=== PATIENT | female | born 1975 | race Caucasian/White ===

== ENCOUNTER 2025-01-29 10:04 | Observation (INO) ==
--- NOTE | 2025-01-29 11:11 | Emergency Department Note ---
History of Present Illness General Chief complaint: Urinary Symptoms Stated complaint: UTI- DIAGNOSED LAST WEEK, SYMPTOMS CONTINUING Time Seen by Provider: 01/29/25 10:58 History of Present Illness Maximum Pain Intensity: 6 This is a 49-year-old female that presents to the emergency department via private vehicle with complaints of "lower abdominal pain, dysuria, back pain". The patient notes that on 12/17/2024 she underwent hysterectomy and notes that there was a small injury to the bladder at that time which was repaired. She has been doing well. However she does note that several days ago began with some dysuria and was seen here and evaluated and noted to have UTI based on urinalysis. She also notes a CT scan was performed. She initially was prescribed Macrobid, was then called and informed urine was growing Pseudomonas aeruginosa and subsequently was placed on ciprofloxacin. She has been taking this since 01/23 and notes that the first few days she felt quite ill and had to lay in bed she thought perhaps secondary to the medication. However now she notes worsening bilateral abdominal pain tracking to the flanks as well as back pain. The patient was concern for worsening infection. She notes that her UTI symptoms never completely resolved, rather have progressed. Home Medications Medication Instructions Recorded Confirmed Type bupropion HCl 300 mg 24 hr tablet, 300 mg PO QAM 08/07/24 01/29/25 History extended release levothyroxine 50 mcg tablet 50 mcg PO QAM 08/07/24 01/29/25 History calcium 600 mg (as 1 tab PO QAM 12/04/24 01/29/25 History carbonate)-vitamin D3 5 mcg (200 unit) tablet fluoxetine 20 mg capsule (Prozac) 20 mg PO HS 12/04/24 01/29/25 History ciprofloxacin HCl 500 mg tablet 500 mg PO BID 01/29/25 01/29/25 History cranberry 500 mg capsule 500 mg PO BID 01/29/25 01/29/25 History Allergies Allergy/AdvReac Type Severity Reaction Status Date / Time chlorhexidine Allergy Severe Hives Verified 01/29/25 12:41 surgical glue Allergy Mild Unknown Uncoded 01/29/25 12:41 Past Med/Surg History Problem List (Updated 01/29/25 @ 22:16 by Rishabh Hayes PA-C) Low back pain (Acute) Dysuria (Acute) Abdominal pain (Acute) Thyroid disease Back problem Asthma Right inguinal hernia History of bladder surgery Postoperative state Vaginal dryness Weight gain Fatigue Scoliosis History of neck surgery Cervical stenosis (uterine cervix) Medical History Hypothyroidism Obesity wellbutrin daily for appetite suppressant Anxiety Heartburn diet related. no current issues Hx of motion sickness PONV (postoperative nausea and vomiting) has used scop patch in the past without issues. Cervical spinal stenosis Temporomandibular joint dysfunction syndrome clicks - never locked. Chronic sinusitis Surgical History History of hip surgery 10/15 H/O: hysterectomy (11/2024) History of anesthesia reaction Nausea & Vomiting H/O cervical spine surgery cervical decompression - has full rom History of colonoscopy History of esophagogastroduodenoscopy (EGD) S/P endometrial ablation History of carpal tunnel release (10/2020) bilateral S/P hip arthroscopy right History of cholecystectomy (2007) History of bilateral tubal ligation History of section x3: 2003,2004,2007 H/O bilateral breast reduction surgery Family History Other Adopted person Social History Smoking Status: Never smoker Second Hand Exposure: No; Do You Dip or Chew Tobacco: No; Hx Alcohol Use: Yes Alcohol type: wine Hx Substance Use: No Preferred Language: Nepali Communication Ability: Effective Visual Impairment: No Limitations Cushion Padder Required: No Beliefs That Will Affect Care: None marital status: Current Living Situation: Spouse current occupational status: employed How many Children do You have: 3 Feels Safe at Home: Yes during the past year weight has: increased > 10 lbs Assistive Devices: Glasses Review of Systems A total of 10 systems reviewed and were otherwise negative Physical Exam Vital Signs Vital Signs - 24 hr 01/29/25 10:06 01/29/25 11:27 Temperature 36.3 C L Temperature Source Skin Pulse Rate 77 Pulse Rate [Finger] 79 Pulse Strength [Finger] Normal Respiratory Rate 20 17 Respiratory Effort / Characteristics Non-Labored Spontaneous Non-Labored Spontaneous Respiratory Depth Normal Normal Respiratory Pattern Regular Regular Blood Pressure 146/89 H Blood Pressure Mean 108 Pulse Oximetry 99 98 Oxygen Delivery Method Room Air Room Air Sepsis Recent Fever Within 48 Hours No Sepsis New/Unexplained Change in Mental Status N/A Sepsis Action Taken by Nursing No Action Required VITAL SIGNS - Vital signs and nursing notes were reviewed. Stable and afebrile. GENERAL -49-year-old female appearing her stated age who is in no acute distress. Communicates well with provider and answers questions appropriately. SKIN - Without rashes. No meningeal or petechial rash. HEAD - NC/AT. EYES - Sclera anicteric. EARS - No deformities of external structures noted on gross examination bilaterally. NOSE - Midline and without cyanosis. No epistaxis or purulent drainage noted. Septum midline without deviation or septal hematoma noted. MOUTH/OROPHARYNX - Without perioral cyanosis. NECK - Neck with FROM. No nuchal rigidity. LUNGS - CTA CARDIAC - RRR ABDOMEN - Abdominal contour normal without pulsations or visible masses. BS normoactive all four quadrants. Generalized abdominal tenderness without guarding or rigidity. No palpable masses, hepatosplenomegaly, or ascites noted. No CVA tenderness. EXTREMITIES - No clubbing or peripheral cyanosis. +5/5 strength noted in UE/LE bilaterally. NEUROLOGIC - Cranial nerves II through XII grossly intact. PSYCH -alert, oriented and pleasant on examination. Course Administered Medications Acetaminophen (Acetaminophen 325 Mg Tab) 650 mg PO Q4H PRN PRN Reason: pain/fever Stop: 02/28/25 17:40 Last Admin: 01/29/25 20:54 Dose: 650 mg Documented By: JA Docusate Sodium (Docusate Sodium 100 Mg Cap) 100 mg PO BID [facility] Stop: 02/28/25 20:59 Last Admin: 01/29/25 21:02 Dose: 100 mg Documented By: SHELTON Fluoxetine HCl (Fluoxetine Hcl 20 Mg Cap) 20 mg PO [facility] Stop: 02/28/25 20:59 Last Admin: 01/29/25 21:02 Dose: 20 mg Documented By: SHELTON Cefepime HCl (Maxipime 2000mg) 2,000 mg in 20 mls @ 5 mls/min IV Q8H [facility]; Protocol Stop: 02/08/25 18:59 Last Admin: 01/29/25 21:02 Dose: 5 mls/min Documented By: SHELTON Lidocaine (Lidocaine 5% 1 Patch) 1 patch TD [facility] Stop: 02/28/25 17:40 Last Admin: 01/29/25 18:54 Dose: 1 patch Documented By: BT Discontinued Medications Sodium Chloride (Nss) 1,000 mls @ 999 mls/hr IV .Q1H1M ONE Stop: 01/29/25 12:10 Last Infusion: 01/29/25 12:31 Dose: Infused Documented By: Admin: 01/29/25 11:14 Dose: 999 mls/hr Documented By: GUYD Cefepime HCl (Maxipime 2000mg) 2,000 mg in 20 mls @ 5 mls/min IV NOW STA; Protocol Stop: 01/29/25 11:15 Last Admin: 01/29/25 11:21 Dose: 5 mls/min Documented By: NICOLAS Medical Decision Making Laboratory Data 01/29/25 11:16 01/29/25 11:16 Lab Results 01/29/25 01/29/25 Range/Units 11:16 11:53 WBC 5.28 (4.8-10.8) K/ul RBC 4.65 (4.20-5.40) M/uL Hgb 14.9 (12.0-16.0) g/dl Hct 43.8 (37.0-47.0) % MCV 94.2 (80.0-100.0) fL MCH 32.0 (25.0-34.0) pg MCHC 34.0 (32.0-36.0) g/dL RDW Std Deviation 42.1 (36.4-46.3) fL RDW Coeff of Keri 12.1 (11.5-14.5) % Plt Count 273 (130-400) K/uL MPV 9.6 (9.4-12.4) fL Immature Gran % (Auto) 0.2 % Neut % (Auto) 53.6 % Lymph % (Auto) 33.5 % Crane % (Auto) 8.0 % Eos % (Auto) 3.8 % Baso % (Auto) 0.9 % Neut # (Auto) 2.83 (1.40-6.50) K/uL Lymph # (Auto) 1.77 (1.20-3.40) K/uL Crane # (Auto) 0.42 (0.11-0.59) K/uL Eos # (Auto) 0.20 (0.00-0.50) K/uL Baso # (Auto) 0.05 (0.00-0.20) K/uL Immature Gran # (Auto) 0.01 (0.01-0.20) K/uL Sodium 138 (136-145) mmol/L Potassium 4.2 (3.5-5.1) mmol/L Chloride 105 (98-107) mmol/L Carbon Dioxide 27 (21-32) mmol/L Anion Gap 6 (3-11) BUN 17 (6-23) mg/dl Creatinine 0.86 (0.6-1.2) mg/dl Est Cr Clr Drug Dosing 80.0 ml/min eGFR 83.80 BUN/Creatinine Ratio 19.8 (10-20) Glucose 86 (70-99(Fasting)) mg/dl Calcium 9.6 (8.6-10.3) mg/dl Total Bilirubin 0.8 (0.2-1.0) mg/dl AST 20 (13-39) U/L ALT 25 (7-52) U/L Alkaline Phosphatase 38 (34-104) U/L Total Protein 7.2 (6.0-8.3) gm/dl Albumin 4.7 (3.4-5.0) gm/dl Globulin 2.5 (2.5-4.0) gm/dl Albumin/Globulin Ratio 1.9 (0.9-2) Procalcitonin < 0.02 (0-0.5) ng/ml Urine Color Dark Yellow Urine Appearance Clear (Clear) Urine pH 6.0 (4.5-7.5) Ur Specific [place] 1.015 (1.000-1.030) Urine Protein Negative (Negative) Urine Glucose (UA) Negative (Negative) Urine Ketones Negative (Negative) Urine Blood Negative (Negative) Urine Nitrite Positive A (Negative) Urine Bilirubin Negative (Negative) Urine Urobilinogen Negative (Negative) Ur Leukocyte Esterase Negative (Negative) Urine WBC (Auto) 0-5 (0-5) /hpf Urine RBC (Auto) 0-2 (0-2) /hpf U Hyaline Cast (Auto) 0-2 (0-2) /lpf U Epithel Cells (Auto) 0-2 (0-2) /hpf Urine Bacteria (Auto) None Seen (None Seen) Imaging Data Radiologist's Impression: Renal Ultrasound 01/29/25 11:10 RENAL ULTRASOUND HISTORY: uti, now diffuse abd pain, flank pain COMPARISON: CT of 01/21/2025 FINDINGS: Urinary bladder is grossly unremarkable. Right kidney measures 12 x 5 cm. Left kidney measures 12 x 5 cm. There is no hydronephrosis bilaterally. There is Doppler flow to both kidneys. Renal cortical thickness is normal. No renal abscess seen. No renal calculi seen. IMPRESSION: No hydronephrosis. ACT 112: Negative or not required by law. Electronically signed by: Sandeep Villalobos M.D. 01/29/2025 12:11 PM [facility] Narrative Patient was seen and evaluated as above in room D03. Review was performed of triage nursing notes and vital signs. I did review pertinent previous visits and patient history. After obtaining a thorough history and physical examination the above work up was performed. Patient presents for evaluation of ongoing urinary symptoms. Per review of the EMR patient was seen here on 01/21/2025 and diagnosed with UTI. She also underwent a CT scan of the abdomen/pelvis which I did review. This was essentially negative for acute process. Urine culture from 01/21/2025 revealed Pseudomonas aeruginosa pansensitive. Patient notes worsening symptoms despite oral ciprofloxacin. This limits additional oral options for coverage of this organism. IV antibiotics are felt reasonable at this time. Options of care were discussed with the patient. IV access with established. Labs were drawn. No leukocytosis or concerning anemia. No emergent metabolic disturbance. Procalcitonin undetectable. Urinalysis reveals nitrites, otherwise is unremarkable. IV cefepime ordered. Although the patient's vital signs and labs look great, noting her progression of dysuria now with generalized abdominal discomfort that is a sending with bilateral flank pain I am concerned about ascending urinary tract infection. I do not believe that repeat CT at this time is needed but did add on renal ultrasound which did not show any hydronephrosis. There was no comment of kidney stones on recent CT scan. Blood culture pending. Case discussed with the hospitalist service. Please refer to further documentation regarding her stay. GCS: 15 In the evaluation and treatment of this patient the following differential diagnoses were entertained: Ascending urinary tract infection/pyelonephritis, kidney stone, obstruction, strain, sprain, cauda equina syndrome, diverticulitis, among others Impression & Plan Dysuria, Abdominal pain, Low back pain Discharge Plan Visit Data Chief Complaint: Urinary Symptoms Stated Complaint: UTI- DIAGNOSED LAST WEEK, SYMPTOMS CONTINUING ED Provider: Ryan Amaya ED Midlevel Provider: Rishabh Hayes Discharge Problem: Dysuria, Abdominal pain, Low back pain Patient Disposition: Admitted As Inpatient Condition: Good Discharge Instructions Interventions: ED Discharge Assessment Last Done: 01/29/25 16:59
[2025-01-29] MEDS: SODIUM CHLORIDE 0.9% 1,000 ML IV ONE (11:14)
[2025-01-29] MEDS: CEFEPIME 2000MG 2,000 MG/20 ML SYR IV STA (11:21)
[2025-01-29 11:51] LABS: Basophils # (auto) 0.05 K/uL (0.00-0.20); Basophils % (auto) 0.9 %; Eosinophils % (auto) 3.8 %; Hematocrit (blood only) 43.8 % (37.0-47.0); Hemoglobin 14.9 g/dl (12.0-16.0); Immature Granulocytes # (auto) 0.01 K/uL (0.01-0.20); Immature Granulocytes % (auto) 0.2 %; Lymphocytes # (auto) 1.77 K/uL (1.20-3.40); Lymphocytes % (auto) 33.5 %; Mean Corpuscular Volume 94.2 fL (80.0-100.0); Mean Platelet Volume 9.6 fL (9.4-12.4); Monocytes # (auto) 0.42 K/uL (0.11-0.59); Neutrophils # (auto) 2.83 K/uL (1.40-6.50); Neutrophils % (auto) 53.6 %; Platelet Count 273 K/uL (130-400); RDW Coefficient of Variation 12.1 % (11.5-14.5); RDW Standard Deviation 42.1 fL (36.4-46.3); Red Blood Count 4.65 M/uL (4.20-5.40); White Blood Count 5.28 K/ul (4.8-10.8)
--- NOTE | 2025-01-29 12:12 | Ultrasound Report ---
RENAL ULTRASOUND HISTORY: uti, now diffuse abd pain, flank pain COMPARISON: CT of 01/21/2025 FINDINGS: Urinary bladder is grossly unremarkable. Right kidney measures 12 x 5 cm. Left kidney measu res 12 x 5 cm. There is no hydronephrosis bilaterally. There is Doppler flow to both kidneys. Renal c ortical thickness is normal. No renal abscess seen. No renal calculi seen. IMPRESSION: No hydronephrosis. ACT 112: Negative or not required by law. Electronically signed by: Sandeep Villalobos M.D. 01/29/2025 12:11 PM
[2025-01-29 12:15] LABS: Albumin Globulin Ratio 1.9 (0.9-2); Albumin Level 4.7 gm/dl (3.4-5.0); BUN Creatinine Ratio 19.8 (10-20); Bilirubin,Total 0.8 mg/dl (0.2-1.0); Calcium 9.6 mg/dl (8.6-10.3); Globulin 2.5 gm/dl (2.5-4.0); Potassium 4.2 mmol/L (3.5-5.1); Total Protein 7.2 gm/dl (6.0-8.3)
[2025-01-29 12:25] LABS: Appearance Urine Clear (Clear); Bacteria Urine Automated None Seen (None Seen); Bilirubin Urine Negative (Negative); Blood Urine Negative (Negative); Cast Urine Automated 0-2 /lpf (0-2); Color Urine Dark Yellow; Epithelial Cell Urine Auto 0-2 /hpf (0-2); Glucose Urine UA Negative (Negative); Ketones Urine Negative (Negative); Leukocyte Esterase Urine Negative (Negative); Nitrite Urine Positive (Negative); Protein Urine Negative (Negative); RBC Urine Automated 0-2 /hpf (0-2); Specific Gravity Urine 1.015 (1.000-1.030); Urobilinogen Urine Negative (Negative); WBC Urine Automated 0-5 /hpf (0-5)
--- NOTE | 2025-01-29 13:09 | History & Physical Report ---
Date of Service January 29, 2025 Assessment & Plan (1) Dysuria: (2) Abdominal pain: (3) Low back pain: Plan Patient is a 49-year-old female who has significant history of hypothyroidism, GERD and depression and anxiety presents to ED secondary to ongoing UTI symptoms. 12/17 pt underwent robotic assisted Laparoscopic Hysterectomy, Bilateral Salpingectomy, Lysis of Adhesions, and Repair of Cystotomy, by Dr. Tracy 12/25 followed up with urology due to bladder injury and cystogram negative for extravasation of contrast. 01/21 seen in ED for urinary sx and abd pain. Urine culture grew 80k Pseudomonas aeruginosa. Initially started on Macrobid and transitioned to cipro. #Dysuria #Suprapubic Discomfort #Low back pain admit to medical under obs blood and urine culture obtained Empiric IV cefepime until culture results given recent culture with 80k pseudomonas ?if sx related to on going UTI vs complicated post op course if urinary sx do not improve despite antibiotics/urine culture unrevealing consider reaching out to [place] [facility] OPERATOR to discuss medication options for her symptoms continue lactobacillus and colace #Low back pain could certainly be related to urinary sx sx are also reproducible on b/l paravertebral muscles in lumbar region could also be MSK related in setting of lying in bed and some deconditioning for several days lidocaine patch, heat, tylenol PRN prn IV toradol prn for severe pain #Hypothyroidism: continue levothyroxine #Depression with anxiety: Chronic, stable, continue wellbutrin and prozac DVT ppx: encourage ambulation FULL CODE PCP: Jj/Flores Martin PA-C Dispo: admit to medical under obs, await urine culture and likely d/c in next 1- 2 days Pt was seen and examined in collaboration with Dr. Miranda, please see addendum I spent a total of 60 minutes coordinating, documenting and providing care for this patient excluding time spent in the performance of separately billed services or time spent by another provider/QHP. History of Present Illness Chief Complaint: On going UTI sx x 1 week. Primary Care Provider: Scarlett Gardner DO Patient is a 49-year-old female who has significant history of hypothyroidism, GERD and depression and anxiety presents to ED secondary to ongoing UTI symptoms. Of significance on 12/17/2024 patient underwent robotic assisted laparoscopic hysterectomy, bilateral salpingectomy, lysis of adhesions and repair of cystotomy that occurred intraoperatively by Dr. Tracy. She tolerated procedure well. Due to the bladder injury she was discharged with a Oliveros catheter and followed up with urology on 12/25. There she has a cystogram with negative extravasation of contrast and her catheter was removed. She was later seen in ED on 01/21 secondary to abdominal pain and dysuria. It was felt that she had a urinary tract infection and was discharged on a course of Macrobid. Her urine culture grew greater than 100,000 Pseudomonas aeruginosa. She was then called by pharmacy to transition antibiotic to ciprofloxacin. So far she has completed 5 days course and has felt unwell since taking ciprofloxacin. She comes in today due to still feeling unwell, suprapubic discomfort, low back discomfort, dysuria and urinary urgency/frequency. She reports significant nausea and joint pains with the cipro to the point she has been in bed the last 5 days. She denies any trauma/injury to her back since she was mostly laying in bed. Denies fever, chills, sweats, chest pain, sob, n/v. She is moving her bowels. She reports having on going urinary/bladder sx since hysterectomy which is expected per provider documentation. She does feel her sx have worsened since the UTI. She is concerned she may have another UTI. In ED she was hemodynamically stable. Her labwork was unremarkable. She underwent a Renal US which was negative. She was started on IV cefepime. Hx obtained from ED provider and pt. Allergies Allergy/AdvReac Type Severity Reaction Status Date / Time chlorhexidine Allergy Severe Hives Verified 01/29/25 12:41 surgical glue Allergy Mild Unknown Uncoded 01/29/25 12:41 Home Medications Medication Instructions Recorded Confirmed Type bupropion HCl 300 mg 24 hr tablet, 300 mg PO QAM 08/07/24 01/29/25 History extended release levothyroxine 50 mcg tablet 50 mcg PO QAM 08/07/24 01/29/25 History calcium 600 mg (as 1 tab PO QAM 12/04/24 01/29/25 History carbonate)-vitamin D3 5 mcg (200 unit) tablet fluoxetine 20 mg capsule (Prozac) 20 mg PO HS 12/04/24 01/29/25 History ciprofloxacin HCl 500 mg tablet 500 mg PO BID 01/29/25 01/29/25 History cranberry 500 mg capsule 500 mg PO BID 01/29/25 01/29/25 History Past Med/Surg History Problem List (Updated 01/29/25 @ 13:54 by Makenna Lawrence PA-C) Low back pain Dysuria (Acute) Abdominal pain (Acute) Thyroid disease Back problem Asthma Right inguinal hernia History of bladder surgery Postoperative state Vaginal dryness Weight gain Fatigue Scoliosis History of neck surgery Cervical stenosis (uterine cervix) Medical History Hypothyroidism Obesity wellbutrin daily for appetite suppressant Anxiety Heartburn diet related. no current issues Hx of motion sickness PONV (postoperative nausea and vomiting) has used scop patch in the past without issues. Cervical spinal stenosis Temporomandibular joint dysfunction syndrome clicks - never locked. Chronic sinusitis Surgical History History of hip surgery 10/15 H/O: hysterectomy (11/2024) History of anesthesia reaction Nausea & Vomiting H/O cervical spine surgery cervical decompression - has full rom History of colonoscopy History of esophagogastroduodenoscopy (EGD) S/P endometrial ablation History of carpal tunnel release (10/2020) bilateral S/P hip arthroscopy right History of cholecystectomy (2007) History of bilateral tubal ligation History of section x3: 2003,2004,2007 H/O bilateral breast reduction surgery Family History Other Adopted person Social History Smoking Status: Never smoker Second Hand Exposure: No; Do You Dip or Chew Tobacco: No; Hx Alcohol Use: Yes Alcohol type: hard liquor Hx Substance Use: No Preferred Language: Nepali Communication Ability: Effective Visual Impairment: No Limitations 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 Beliefs That Will Affect Care: None marital status: Current Living Situation: Spouse and Family current occupational status: employed How many Children do You have: 3 Feels Safe at Home: Yes during the past year weight has: increased > 10 lbs Assistive Devices: Glasses Review of Systems Review of Systems: All systems reviewed & are unremarkable except as noted in HPI & below Physical Exam Physical Exam: Constitutional: WD/WN, vitals as above, NAD, sitting up in bed, pleasant, conversing easily Head: Normocephalic, Atraumatic Eyes: PERRL, conjunctivae normal, anicteric sclerae ENMT: external ear and nose normal, oropharynx normal Neck: trachea midline, no thyromegaly normal visual inspection Respiratory: normal respiratory effort, lungs clear to auscultation, no wheeze, rales, rhonchi. Normal insp/exp effort, no accessory muscle use Cardiovascular: RRR, no murmur, no edema Vessels: no JVD or carotid bruit Chest: normal inspection of chest Abdomen: normal bowel sounds, soft, mild TTP suprapubic region, no hepatosplenomegaly , no CVA tenderness Musculoskeletal: +TTP to b/l paravertebral muscles, no cyanosis or clubbing, extremities motor strength 5/5 Skin: no rashes, warm and dry normal turgor Neurologic: no face palsy, no dysarthria CN's II-XI intact bilaterally and moves all extremities Psychiatric: A+Ox3, euthymic affect Lymphatic: no cervical or axillary lymphadenopathy : deferred Results & Data Results & Data Vital Signs (Past 12 Hours) Vital Signs Temp Pulse Pulse Resp BP Pulse Ox O2 Del Method 01/29/25 11:27 79 17 98 Room Air 01/29/25 10:06 36.3 C L 77 20 146/89 H 99 Room Air Laboratory Results I have independently reviewed and interpreted patient's admitting labs including CBC, CMP, UA, procal Diagnostic Findings Renal Ultrasound 01/29/25 11:10 RENAL ULTRASOUND HISTORY: uti, now diffuse abd pain, flank pain COMPARISON: CT of 01/21/2025 FINDINGS: Urinary bladder is grossly unremarkable. Right kidney measures 12 x 5 cm. Left kidney measures 12 x 5 cm. There is no hydronephrosis bilaterally. There is Doppler flow to both kidneys. Renal cortical thickness is normal. No renal abscess seen. No renal calculi seen. IMPRESSION: No hydronephrosis. ACT 112: Negative or not required by law. Electronically signed by: Sandeep Villalobos M.D. 01/29/2025 12:11 PM Medications Administered Medication List Discontinued Medications Sodium Chloride (Nss) 1,000 mls @ 999 mls/hr IV .Q1H1M ONE Stop: 01/29/25 12:10 Last Infusion: 01/29/25 12:31 Dose: Infused Documented By: Admin: 01/29/25 11:14 Dose: 999 mls/hr Documented By: MIKHAIL Cefepime HCl (Maxipime 2000mg) 2,000 mg in 20 mls @ 5 mls/min IV NOW STA; Protocol Stop: 01/29/25 11:15 Last Admin: 01/29/25 11:21 Dose: 5 mls/min Documented By: NICOLAS COVID-19 Results Results COVID-19 Adm Lab Results: RBC 4.65 M/uL (4.20-5.40) 01/29/25 WBC 5.28 K/ul (4.8-10.8) 01/29/25 Hgb 14.9 g/dl (12.0-16.0) 01/29/25 Hct 43.8 % (37.0-47.0) 01/29/25 Plt Count 273 K/uL (130-400) 01/29/25 Neutrophils (%) (Auto) 53.6 % 01/29/25 Lymphocytes (%) (Auto) 33.5 % 01/29/25 Eosinophils # (Auto) 0.20 K/uL (0.00-0.50) 01/29/25 Immature Granulocyte % (Auto) 0.2 % 01/29/25 Neutrophils # (Auto) 2.83 K/uL (1.40-6.50) 01/29/25 Lymphocytes # (Auto) 1.77 K/uL (1.20-3.40) 01/29/25 Eosinophils # (Auto) 0.20 K/uL (0.00-0.50) 01/29/25 Basophils # (Auto) 0.05 K/uL (0.00-0.20) 01/29/25 Immature Granulocyte # (Auto) 0.01 K/uL (0.01-0.20) 5 Na 138 mmol/L (136-145) 01/29/25 K 4.2 mmol/L (3.5-5.1) 01/29/25 Cl 105 mmol/L (98-107) 01/29/25 CO2 27 mmol/L (21-32) 01/29/25 Anion Gap 6 (3-11) 01/29/25 BUN 17 mg/dl (6-23) 01/29/25 Creatinine 0.86 mg/dl (0.6-1.2) 01/29/25 BUN/Creatinine Ratio 19.8 (10-20) 01/29/25 Glucose Level 86 mg/dl (70-99(Fasting)) 01/29/25 Ca 9.6 mg/dl (8.6-10.3) 01/29/25 Total Bilirubin 0.8 mg/dl (0.2-1.0) 01/29/25 AST/SGOT 20 U/L (13-39) 01/29/25 ALT/SGPT 25 U/L (7-52) 01/29/25 Alkaline Phosphatase 38 U/L (34-104) 01/29/25 Total Protein 7.2 gm/dl (6.0-8.3) 01/29/25 Albumin 4.7 gm/dl (3.4-5.0) 01/29/25 Globulin 2.5 gm/dl (2.5-4.0) 01/29/25 Albumin/Globulin Ratio 1.9 (0.9-2) 01/29/25 Procalcitonin < 0.02 ng/ml (0-0.5) 01/29/25 Code Status & VTE Plan Code Status FULL CODE VTE Prophylaxis Plan VTE Prophylaxis will be ordered: No Reason for no VTE drug order: Treatment not tolerated Supervising Physician Co-Signing Physician Notes Pt was seen and examined by myself, Gayatri Miranda MD on the day of service. Care was coordinated with Makenna Lawrence PA-C. 49yoF admitted for UTI with dysuria and back pain. States that she had a hysterectomy a few weeks ago and had a bladder injury at that time as well. Urine cx on the grew pseudomonas near completion of treatment with fluoroquinolone with side-effects. Tender in lower abd quadrants on exam, no CVA tenderness bilaterally at the time of my exam. Follow repeat urine cx, ED ordered blood cultures. CT abd/pelvis from January 21 reviewed, consider repeat IV Cefepime PRN pain meds Consider Urology, DRIER OPERATOR consults Otherwise as above. I spent a total [id number] coordinating, documenting, and providing care for this patient excluding time spent in the performance of separately billed services (2) Abdominal pain Abdominal location: generalized Qualified Code(s): R10.84 - Generalized abdominal pain
[2025-01-29] MEDS ORDERED: POLYETHYLENE (MIRALAX) 17 GM PACK PO PRN (17:41)
[2025-01-29] MEDS ORDERED: PHENAZOPYRIDINE HCL 200 MG TAB PO PRN (17:41)
[2025-01-29] MEDS ORDERED: FAMOTIDINE 20 MG TAB PO PRN (17:41)
[2025-01-29] MEDS: LIDOCAINE 5% 1 PATCH TD SCH (18:54)
[2025-01-29] MEDS: ACETAMINOPHEN 325 MG TAB PO PRN (20:54)
[2025-01-29] MEDS ORDERED: NON-FORMULARY MEDICATION (Cranberry 500 mg Capsule) PO SCH (21:00)
[2025-01-29] MEDS: DOCUSATE SODIUM 100 MG CAP PO SCH (21:02)
[2025-01-29] MEDS: CEFEPIME 2000MG 2,000 MG/20 ML SYR IV SCH (21:02)
[2025-01-29] MEDS: FLUoxetine HCL 20 MG CAP PO SCH (21:02)
--- NOTE | 2025-01-30 07:27 | Hospitalist Progress Note ---
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 Recent history significant for the followin12/17/24 - Underwent robotic assisted laparoscopic hysterectomy, bilateral salpingectomy, lysis of adhesions and repair of cystotomy performed by Dr. Tracy of [facility]. 12/25/24 - Saw [facility]rology, Dr. Keyes, as an outpatient due to bladder injury during above procedure. Underwent cystogram which was negative for extravasation of contrast. 01/21/25 - Seen in [facility] ED for UTI symptoms. Urine culture grew 80k pansensitive Pseudomonas aeruginosa. Initially on Macrobid then transitioned to ciprofloxacin w/o improvement. Renal US reviewed and unremarkable. Preliminary urine culture with no growth. Preliminary blood cultures with NGTD. Continue IV cefepime for now pending final urine culture results. Currently on day #8 of ABX therapy including po ciprofloxacin (taken prior to admission) and IV cefepime. Continue probiotic as well as PRN Pyridium for dysuria. Low back pain improving; PRN IV Toradol ordered for back pain/headache. Suspect low back pain is more related to deconditioning/lack of activities for several days prior to admission due to her muscle/joint pains while on the ciprofloxacin. Will repeat CTAP given persistence of symptoms; prior CTAP from 01/11 during her prior ED visit outlined above was unremarkable. Discussed with patient regarding trial of Gemtesa (Myrbetriq not on formulary) in attempt to reduce urinary frequency to which she was agreeable with. (3) Hypothyroidism: Plan: Chronic, stable. Continue levothyroxine. Other Chronic Medical Conditions: PHOEBE, Depression - Continue Wellbutrin and Prozac. DVT Prophylaxis: SCDs/TEDS, encourage ambulation. Code Status: FULL CODE PCP: Scarlett Gardner DO Disposition: Likely discharge home tomorrow pending CTAP results and overall clinical progression. Patient seen in collaboration with Dr. Mackay. Please see addendum. I spent a total of 40 minutes coordinating, documenting, and providing care for this patient excluding time spent in the performance of separately billed services or time spent by another provider/QHP. This included personally reviewing all current laboratories and imaging studies, medical reconciliation, outpatient chart review and discussion with specialists. This chart was completed in part utilizing Speech Voice Recognition Software. Grammatical errors, random word insertions, pronoun errors, and incomplete sentences are an occasional consequence of this system due to software limitations, ambient noise, and hardware issues. Any formal questions or concerns about the content, text, or information contained within the body of this dictation should be directly addressed to the provider for clarification. Admission and Anticipated Discharge Date Admission Date: January 29, 2025 Supervising Physician Co-Signing Physician Notes Patient seen and examined at bedside. Discussed patients recent hysterectomy and oophorectomy, procedures complicated by bladder "dontrell". Presenting with abdominal pain, lower back pain, some burning with urination and frequency. UA unremarkable. CT imaging revealing concern for urachal remnant infection. No umbilicus drainage noted. Suspect urachal remnant infection is post operative complication from complex recent hysterectomy and oophorectomy. Treat with broad spectrum antibiotics, consult urology, and infectious disease in AM for definitive management. I have seen and discussed the case with the collaborating advanced practitioner. I agree with the above H&P. I have reviewed and confirmed the patients medical history, the findings on physical examination, and the patients diagnosis and treatment plan with Sarita GRIMM and agree with the information documented. I spent a total of 20 minutes coordinating, documenting, and providing care for this patient excluding time spent in the performance of separately billed services. All of the aforementioned completed outside of collaborating with the assigned advanced practitioner for a full treatment plan. I have reviewed the advanced practitioner's documentation, and I agree with, and take responsibility for the plan of care Subjective Patient seen and examined in room W356-1. NAEO. Of importance, patient underwent robotic assisted laparoscopic hysterectomy, bilateral salpingectomy, lysis of adhesions and repair of cystotomy performed by Dr. Tracy of [facility] back on December 17. Previously had to have a Oliveros catheter in place due to the bladder injury she sustained during this procedure. Her Oliveros catheter was in place from 12/17 until 12/25 when she was seen and evaluated by [facility] urology - Dr. Keyes. She underwent a cystogram during her urology visit which did not reveal any signs of extravasation to suggest a bladder leak. She was previously seen in the [facility] ED on 01/21 and started on oral Macrobid for possible UTI. Urine culture from that visit ended up growing Pseudomonas aeruginosa therefore she was transitioned to oral ciprofloxacin on 01/23 however her symptoms did not fully resolve. Patient endorses feeling "quite ill" on the ciprofloxacin with symptoms including low back discomfort as well as nausea and joint pain/aches. Feels her low back discomfort is improving. Endorses her nausea and joint pain have also improved since stopping the oral ciprofloxacin and starting IV cefepime. Endorses ongoing issues with increased urinary frequency, suprapubic discomfort and dysuria however. Denies any hematuria, SOB or chest pain. Reports suprapubic discomfort is improving slightly but still present. Endorses taking both a cranberry supplement and Azo PRN at home with some relief in her dysuria. Reports she was up over 20 times throughout the night to urinate. Denies any urinary or bowel incontinence. Experiencing a mild headache this morning. Denies any visual disturbances or hearing issues. Reviewed her renal US results. Review of Systems Review of Systems: At least ten systems reviewed and negative, except as noted in the subjective section. Physical Exam Physical Exam: General: WD/WN. Sitting up in bed. Very pleasant. NAD. Conversing appropriately. A+Ox3. HEENT: Normocephalic, atraumatic. Conjunctivae normal. External ear/nose normal, moist mucous membranes. Respiratory: Normal respiratory effort. Lungs clear to auscultation bilaterally. No accessory muscle use. Cardiovascular: Regular rate and rhythm, normal peripheral pulses. No BLE edema. Abdomen/GI: Normal bowel sounds, soft. Nondistended. Mild TTP in suprapubic region. No guarding. Extremities/Musculoskeletal: Extremities motor strength intact. Actively moves all extremities. No CVA tenderness bilaterally. Neurologic: No overt focal deficits, CN's II-XI not formally tested but appear grossly intact bilaterally. Results & Data Results & Data Vital Signs (Past 12 Hours) Vital Signs Temp Pulse Resp BP Pulse Ox O2 Del Method 01/29/25 20:19 36.5 C 73 16 133/64 99 Room Air Laboratory Results Short CBC 01/29/25 Range/Units 11:16 WBC 5.28 (4.8-10.8) K/ul Hgb 14.9 (12.0-16.0) g/dl Hct 43.8 (37.0-47.0) % Plt Count 273 (130-400) K/uL BMP 01/29/25 11:16 Sodium 138 Potassium 4.2 Chloride 105 Carbon Dioxide 27 BUN 17 Creatinine 0.86 Glucose 86 Calcium 9.6 Liver Function 01/29/25 Range/Units 11:16 Total Bilirubin 0.8 (0.2-1.0) mg/dl AST 20 (13-39) U/L ALT 25 (7-52) U/L Alkaline Phosphatase 38 (34-104) U/L Albumin 4.7 (3.4-5.0) gm/dl Urine 01/29/25 Range/Units 11:53 Urine Color Dark Yellow Urine Appearance Clear (Clear) Urine pH 6.0 (4.5-7.5) Ur Specific [place] 1.015 (1.000-1.030) Urine Protein Negative (Negative) Urine Glucose (UA) Negative (Negative) (2) Low back pain Back pain laterality: unspecified Chronicity: unspecified Sciatica presence: unspecified whether sciatica present Qualified Code(s): M54.50 - Low back pain, unspecified (3) Hypothyroidism Hypothyroidism type: unspecified Qualified Code(s): E03.9 - Hypothyroidism, unspecified
[2025-01-30 07:56] LABS: Basophils # (auto) 0.04 K/uL (0.00-0.20); Basophils % (auto) 0.9 %; Eosinophils % (auto) 4.7 %; Hematocrit (blood only) 42.2 % (37.0-47.0); Hemoglobin 14.4 g/dl (12.0-16.0); Immature Granulocytes # (auto) 0.01 K/uL (0.01-0.20); Immature Granulocytes % (auto) 0.2 %; Lymphocytes # (auto) 1.37 K/uL (1.20-3.40); Lymphocytes % (auto) 32.3 %; Mean Corpuscular Hemoglobin 31.4 pg (25.0-34.0); Mean Corpuscular Hgb Conc 34.1 g/dL (32.0-36.0); Mean Corpuscular Volume 91.9 fL (80.0-100.0); Mean Platelet Volume 9.5 fL (9.4-12.4); Monocytes # (auto) 0.41 K/uL (0.11-0.59); Monocytes % (auto) 9.7 %; Neutrophils # (auto) 2.21 K/uL (1.40-6.50); Neutrophils % (auto) 52.2 %; Platelet Count 248 K/uL (130-400); RDW Coefficient of Variation 12.3 % (11.5-14.5); RDW Standard Deviation 41.3 fL (36.4-46.3); Red Blood Count 4.59 M/uL (4.20-5.40); White Blood Count 4.24 K/ul (4.8-10.8)
[2025-01-30 08:34] LABS: Calcium 9.4 mg/dl (8.6-10.3); Potassium 4.1 mmol/L (3.5-5.1)
[2025-01-30] MEDS: buPROPion XL 300 MG TABCR PO SCH (09:26)
[2025-01-30] MEDS: LEVOTHYROXINE SODIUM 50 MCG TABLET PO SCH (09:26)
[2025-01-30] MEDS: CALCIUM 600MG + VIT D 400 IU TAB PO SCH (09:27)
[2025-01-30] MEDS: ADVANCED PROBIOTIC 625 MG CAPSULE PO SCH (09:27)
[2025-01-30] MEDS: KETOROLAC 30 MG/ML VIAL IV PRN (12:09)
[2025-01-30] MEDS ORDERED: KETOROLAC TROMETHAMINE 15 MG/ML VIAL IV PRN (12:36)
[2025-01-30] MEDS: OPTIRAY 320 100ml IV ONE (15:07)
[2025-01-30] MEDS: VIBEGRON 75 MG TAB PO SCH (15:23)
--- NOTE | 2025-01-30 15:47 | CT Scan Report ---
CT abdomen pelvis wo/w con CLINICAL HISTORY: DYSURIA suprapubic pain; history of a prior hysterectomy COMPARISON STUDY: 01/21/2025 where the patient had the same presenting symptomatology. TECHNIQUE: Helical axial CT of the abdomen and pelvis was performed before and after 93 cc of Optiray 320 intravenously. Sagittal and coronal reconstructions were done. Total exam DLP 2522.06mGy*cm FINDINGS: The noncontrast examination demonstrates no acute findings. Following intravenous contrast enhancement, there is no significant solid organ lesion identified. Di ffuse hepatic steatosis is redemonstrated. The gallbladder is absent. The bile ducts are not dilated. There is no hydronephrosis. There is no urinary tract calcification. In the pancreas, adrenal glands, and spleen are unremarkable. There is no aortic aneurysm or periaort ic adenopathy. There is no bowel obstruction or free air. There is no ascites. There is no colitis or diverticulitis . In the pelvis, there is a small fat-containing umbilical hernia that is unchanged. There is inflammat ory-type stranding in the anterior aspect of the bladder wall extending upward along the line of a aquino spected urachal remnant. The uterus is absent today. There is no fluid in the cul-de-sac. The appendix is normal. 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 ACT 112: Negative or not required by law. Electronically signed by: Jeannie Green M.D. 01/30/2025 3:46 PM
[2025-01-30 19:57] VITALS: TEMP 98.1
[2025-01-30] MEDS: MELATONIN 3 MG TAB PO PRN (19:59)
[2025-01-31 07:15] VITALS: BP 108/66; PULSE 70; RESP 17; O2SAT 95
[2025-01-31 08:28] LABS: BUN Creatinine Ratio 19.4 (10-20); Calcium 9.4 mg/dl (8.6-10.3); Creatinine Clr Calc Pharmacy 75.8 ml/min; Magnesium 2.1 mg/dl (1.7-2.4); Potassium 4.4 mmol/L (3.5-5.1)
[2025-01-31 10:09] LABS: Hematocrit (blood only) 41.2 % (37.0-47.0); Hemoglobin 14.3 g/dl (12.0-16.0); Mean Corpuscular Hemoglobin 32.4 pg (25.0-34.0); Mean Corpuscular Hgb Conc 34.7 g/dL (32.0-36.0); Mean Corpuscular Volume 93.2 fL (80.0-100.0); Mean Platelet Volume 9.7 fL (9.4-12.4); Platelet Count 252 K/uL (130-400); RDW Coefficient of Variation 12.1 % (11.5-14.5); RDW Standard Deviation 41.7 fL (36.4-46.3); Red Blood Count 4.42 M/uL (4.20-5.40); White Blood Count 4.53 K/ul (4.8-10.8)
--- NOTE | 2025-01-31 10:44 | Urology Consultation ---
<Statement entered by Huseyin Albarran MD - 01/31/25 14:30> I have discussed Ms Arauz's case with CRISTAL Avery and agree with the above documentation. 49-year-old female s/p recent hysterectomy complicated by bladder dome injury which was repaired at the time of surgery. She has now returned to the hospital with urinary tract infection and ongoing symptoms. Urine culture from 01/21 demonstrated Pseudomonas which was sensitive to ciprofloxacin (with which she was previously treated) and cefepime (she is on this currently). Most recent blood and urine cultures from 01/29/2025 were negative. Some of her urinary symptoms may be attributed to the bladder repair as this could cause discomfort, changes in sensation, bladder spasms. Her CT scan from 01/30 was read by radiology as a possible urachal remnant or focal cystitis. I do not appreciate any significant abnormalities of the bladder wall. There is a portion where the bowel is close in the bladder. No significant hydronephrosis or stones bilaterally. Bladder is decompressed. I do not appreciate any focal collections that need drainage or other surgical intervention at this time. Her symptoms could be related to recent procedure and UTI. Agree with ongoing antibiotics. Would be reasonable to perform bladder scans to ensure she is emptying well. Urology will coordinate outpatient follow-up. Please call with any questions or concerns. -Huseyin Albarran MD. Date of Consultation January 31, 2025 Assessment & Plan (1) History of bladder surgery: (2) Dysuria: (3) Suprapubic pain: 49 yo F with history of hysterectomy with bladder repair and recent UTI admitted for persistent urinary symptoms. Patient is afebrile with stable vitals Labs reviewedcreatinine 0.93, WBC 4.53, hemoglobin 14.3 Urine culture 01/21 with Pseudomonas Repeat culture 01/29 prelim with no growth, blood cultures no growth to date CT reviewed -there is some thickening at the dome of the bladder which may be due to prior surgery/repair or cystitis/other; no urachal remnant appreciated Discussed outpatient cystoscopy for further evaluation and she is agreeable No acute intervention at this time Recommend continue antibiotics per culture Continue supportive care and medical management per hospital service Will arrange outpatient urology follow-up will sign off, please contact us with any additional questions or concerns History of Present Illness Reason for Consultation: urachal cyst infection, recent hyster Attending Physician: Alan Mackay MD History of Present Illness This is a 49-year-old female status post hysterectomy with intraoperative bladder dome cystotomy with repair on 12/17/2024. She had follow-up with urology on 12/25/24 after she underwent cystogram which did not have any extravasation and her Oliveros catheter was removed. She presented to ED on 01/21/25 for evaluation of abdominal pain and urinary symptoms. She was discharged with a course of Macrobid. Urine culture grew out greater than 100 K CFU of Pseudomonas aeruginosa. She was transitioned to ciprofloxacin after her culture data resulted. She returned to ED on 01/29/25 due to ill feelings, suprapubic and low back discomfort, and nausea. In ED, she was afebrile and hemodynamically stable. Labs showed WBC 5.28, hemoglobin 14.9, creatinine 0.86. Urinalysis was positive for nitrates, otherwise unremarkable. Renal ultrasound 01/29/2025 showed no hydronephrosis. She was admitted to the hospital medicine service for UTI. She was started on empiric Cefepime. Workup included CT abdomen pelvis without/with contrast on 01/30/25 in which the radiologist read findings suspicious for urachal remnant infection/focal cystitis. Urology is consulted for evaluation. CT reviewed independently and with my attending. No hydronephrosis. There is some thickening of the dome of the bladder which may be postoperative related vs cystitis or other; do not appreciate a urachal remnant. Urine culture 01/29 prelim no growth. Blood cultures with no growth x 24 hours. Labs today-creatinine 0.93, WBC 4.53, hemoglobin 14.3 Patient seen and examined at bedside. She is awake and resting in bed. Reports she is generally feeling better since arrival. Her low back discomfort has improved. She continues to have some suprapubic discomfort and urinary discomfort. Reports urinary frequency. No fever or chills. Allergies Allergy/AdvReac Type Severity Reaction Status Date / Time chlorhexidine Allergy Severe Hives Verified 01/29/25 12:41 surgical glue Allergy Mild Unknown Uncoded 01/29/25 12:41 Home Medications Medication Instructions Recorded Confirmed Type bupropion HCl 300 mg 24 hr tablet, 300 mg PO QAM 08/07/24 01/29/25 History extended release levothyroxine 50 mcg tablet 50 mcg PO QAM 08/07/24 01/29/25 History calcium 600 mg (as 1 tab PO QAM 12/04/24 01/29/25 History carbonate)-vitamin D3 5 mcg (200 unit) tablet fluoxetine 20 mg capsule (Prozac) 20 mg PO HS 12/04/24 01/29/25 History ciprofloxacin HCl 500 mg tablet 500 mg PO BID 01/29/25 01/29/25 History cranberry 500 mg capsule 500 mg PO BID 01/29/25 01/29/25 History Patient History Medical History Hypothyroidism Obesity wellbutrin daily for appetite suppressant Anxiety Heartburn diet related. no current issues Hx of motion sickness PONV (postoperative nausea and vomiting) has used scop patch in the past without issues. Cervical spinal stenosis Temporomandibular joint dysfunction syndrome clicks - never locked. Chronic sinusitis Surgical History History of hip surgery 10/15 H/O: hysterectomy (11/2024) History of anesthesia reaction Nausea & Vomiting H/O cervical spine surgery cervical decompression - has full rom History of colonoscopy History of esophagogastroduodenoscopy (EGD) S/P endometrial ablation History of carpal tunnel release (10/2020) bilateral S/P hip arthroscopy right History of cholecystectomy (2007) History of bilateral tubal ligation History of section x3: 2003,2004,2007 H/O bilateral breast reduction surgery Family History Other Adopted person Social History Smoking Status: Never smoker Second Hand Exposure: No; Do You Dip or Chew Tobacco: No; Hx Alcohol Use: Yes Alcohol type: wine Hx Substance Use: No Preferred Language: [place] Communication Ability: Effective Visual Impairment: No Limitations Harmonica Maker Required: No Beliefs That Will Affect Care: None marital status: Current Living Situation: Spouse current occupational status: employed How many Children do You have: 3 Feels Safe at Home: Yes during the past year weight has: increased > 10 lbs Assistive Devices: None Review of Systems Constitutional: as per Subjective / HPI Genitourinary: as per Subjective / HPI Physical Exam Constitutional: well developed and well nourished; no acute distress Respiratory: normal respiratory effort; no respiratory distress and no labored breathing Gastrointestinal (Abdomen): Inspection/Auscultation: abdomen normal to inspection Musculoskeletal: Head/Neck/Chest: normocephalic Neurologic: moves all extremities and awake Psychiatric: Orientation: alert and oriented x 3 Results & Data Vital Signs (Past 12 Hours) Vital Signs Temp Pulse Resp BP Pulse Ox O2 Del Method 01/31/25 07:15 36.7 C 70 17 108/66 95 Room Air PG Care Time/CCT Total # of Minutes Spent Total Time Spent with Patient: Total time spent is greater than 50% in coordination of care (as documented) at patient's floor/unit and/or counseling patient: Coding Level of Care Code 86064 IN/OBS CONSULT LVL 4,60M Diagnoses History of bladder surgery Z98.890 Dysuria R30.0 Suprapubic pain R10.2
[2025-01-31] MEDS: ONDANSETRON INJ 2 MG/ML 2 ML VIAL IV PRN (11:56)
--- NOTE | 2025-01-31 13:36 | Infectious Disease Consult ---
Date of Service January 31, 2025 Telehealth Information I performed this visit using a real-time telehealth connection between my location and the patients location ([facility]). After connecting through interactive tele-video, patient was identified by name and date of and/or wristband check.Patient (or authorized healthcare sales representative supervisor) was informed that this was a telemedicine visit and it was being conducted confidentially over secure lines. My office door was closed and no on e else was present in the room with me.Patient (or authorized healthcare sales representative supervisor) provided consent to proceed with the visit, expressed an understanding of privacy and security of the telemedicine visit, and gave permission to have a hospital sales representative supervisor in the room in order to assist with the visit and to conduct portions of the visit, as needed. I informed the patient (or authorized healthcare sales representative supervisor) that I reviewed their record and presented the opportunity for them to ask any questions regarding the visit today. The patient agreed to participate. Assessment & Plan (1) H/O bladder repair surgery: (2) Suprapubic pain: (3) Dysuria: Plan At this point, I have no concern for urinary tract infection. Also, my concern for urachal infection is very low. Therefore, I would recommend stopping all antibiotics. The symptoms are more likely post operative or anatomical/functional in origin rather than infectious. I appreciate the assessment of illuminating engineer/urologist teams. Thank you for your consult. We will sign off for now. History of Present Illness History of Present Illness Ms. Arauz is a 49-year-old woman with medical history of hypothyroidism, major depressive disorder/generalized anxiety disorder and history of bladder injury status post repair in November 2024 who was admitted to [facility] on 01/29/2025 because of concerns for urinary tract infection. She underwent robotic assisted laparoscopic hysterectomy and bilateral salpingectomy with lysis of adhesions on 12/17/2024. During that same procedure, she underwent repair of cystotomy which was iatrogenic at a previous obstetric s urgery. She had a urinary catheter placed at that time and was removed during Urology clinic visit on 12/25/2024. She also had a cystogram performed during that visit which did not show any extravasation of contrast. Apparently, the patient started having urinary tract symptoms manifesting as dysuria, fullness in the bladder and lower abdominal discomfort with pain sometimes radiating to the back around 2 weeks ago and had to come to the Emergency Department where a urine culture was sent and which grew Pseudomonas aeruginosa. She was started on Macrobid but then shifted to ciprofloxacin when the cultures and sensitivities were back. She completed 5 days of oral ciprofloxacin but has not improved. She comes back again now with suprapubic discomfort, low back pain, dysuria and urinary urgency/frequency. All of her vitals were within normal limits and blood workup was not impressive. Even the urinalysis showed 0-5 WBCs with no bacteria. CT scan of the abdomen and pelvis was performed and showed urachal infection/focal cystitis. ID team was consulted for further recommendations and to help guide antibiotic treatment. Allergies Allergy/AdvReac Type Severity Reaction Status Date / Time chlorhexidine Allergy Severe Hives Verified 01/29/25 12:41 surgical glue Allergy Mild Unknown Uncoded 01/29/25 12:41 Home Medications Medication Instructions Recorded Confirmed Type bupropion HCl 300 mg 24 hr tablet, 300 mg PO QAM 08/07/24 01/29/25 History extended release levothyroxine 50 mcg tablet 50 mcg PO QAM 08/07/24 01/29/25 History calcium 600 mg (as 1 tab PO QAM 12/04/24 01/29/25 History carbonate)-vitamin D3 5 mcg (200 unit) tablet fluoxetine 20 mg capsule (Prozac) 20 mg PO HS 12/04/24 01/29/25 History ciprofloxacin HCl 500 mg tablet 500 mg PO BID 01/29/25 01/29/25 History cranberry 500 mg capsule 500 mg PO BID 01/29/25 01/29/25 History phenazopyridine 200 mg tablet 200 mg PO TID PRN pain with 01/31/25 Rx (Pyridium) urination #30 tabs vibegron 75 mg tablet (Gemtesa) 75 mg PO DAILY #30 tabs 01/31/25 Rx Patient History Medical History Hypothyroidism Obesity wellbutrin daily for appetite suppressant Anxiety Heartburn diet related. no current issues Hx of motion sickness PONV (postoperative nausea and vomiting) has used scop patch in the past without issues. Cervical spinal stenosis Temporomandibular joint dysfunction syndrome clicks - never locked. Chronic sinusitis Surgical History History of hip surgery 10/15 H/O: hysterectomy (11/2024) History of anesthesia reaction Nausea & Vomiting H/O cervical spine surgery cervical decompression - has full rom History of colonoscopy History of esophagogastroduodenoscopy (EGD) S/P endometrial ablation History of carpal tunnel release (10/2020) bilateral S/P hip arthroscopy right History of cholecystectomy (2007) History of bilateral tubal ligation History of section x3: 2003,2004,2007 H/O bilateral breast reduction surgery Family History Other Adopted person Social History Smoking Status: Never smoker Second Hand Exposure: No; Do You Dip or Chew Tobacco: No; Hx Alcohol Use: Yes Alcohol type: wine Hx Substance Use: No Preferred Language: Marshallese Communication Ability: Effective Visual Impairment: No Limitations 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 Physical Exam Could not be performed as the encounter was conducted via TeleMed. Results & Data Vital Signs (Past 12 Hours) Vital Signs Temp Pulse Resp BP Pulse Ox O2 Del Method 01/31/25 07:15 36.7 C 70 17 108/66 95 Room Air Laboratory Results Microbiology: 01/21: Urine culture growing Pseudomonas 01/29: 2 sets of blood culture negative to date 01/29: Urine culture negative Diagnostic Findings Imaging: CT scan abdomen pelvis on 01/30: Findings suspicious for urachal remnant infection/focal cystitis.
--- NOTE | 2025-01-31 14:08 | Discharge Summary ---
Discharge Summary Date of Service January 31, 2025 Principal Dx & Hospital Course #1 = Principal Diagnosis (1) Dysuria: (2) Low back pain: Riki Arauz is a relatively healthy 49y/o F with PMHx significant for hypothyroidism due to Justin's thyroiditis, GERD without esophagitis, cervical myofascial pain syndrome, primary osteoarthritis of both first carpometacarpal joints, bilateral carpal tunnel syndrome, radicular pain of thoracic region, PHOEBE and depression who presented to the ED from home on 01/29/25 with c/o ongoing UTI symptoms including dysuria, suprapubic pain and low back pain. Recent history significant for the followin12/17/24 - Underwent robotic assisted laparoscopic hysterectomy, bilateral salpingectomy, lysis of adhesions and repair of cystotomy performed by Dr. Tracy [facility]. 12/25/24 - Saw [facility], Dr. Keyes, as an outpatient due to bladder injury during above procedure. Underwent cystogram which was negative for extravasation of contrast. 01/21/25 - Seen in [facility] ED for UTI symptoms. Urine culture grew 80k pansensitive Pseudomonas aeruginosa. Initially on Macrobid then transitioned to ciprofloxacin w/o improvement. Renal US reviewed and unremarkable. Preliminary urine culture with no growth. Blood and urine cultures both negative. Repeat CT a/p: Findings suspicious for urachal remnant infection/focal cystitis. Seen and evaluated by urology who recommends outpatient cystoscopy. ID agrees and feel no longer sx from UTI and felt unlikely urachal cyst. Continue PRN Pyridium Initiated on Gemtesa Recommend Ibuprofen or tylenol for pain (3) Hypothyroidism: Patient seen in collaboration with Dr. Mackay. Please see addendum. I spent a total of 45 minutes coordinating, documenting, and providing care for this patient excluding time spent in the performance of separately billed services or time spent by another provider/QHP. This included personally reviewing all current laboratories and imaging studies, medical reconciliation, outpatient chart review and discussion with specialists. Notes For Next Care Provider It is felt symptoms are likely as a result of post op hysterectomy complications. Please ensure pt has appropriate urology follow up. Medication Changes From Visit New Medications: 1. Gemtesa 75mg daily to help with urinary urgency 2. Pyridium 200mg every 8 hrs as needed for pain when urinating. This will discolor your urine orange. 3. Ibuprofen 600mg every 6-8hrs as needed for lower abdominal pain. Admission HPI Per Admitting Provider Patient is a 49-year-old female who has significant history of hypothyroidism, GERD and depression and anxiety presents to ED secondary to ongoing UTI symptoms. Of significance on 12/17/2024 patient underwent robotic assisted laparoscopic hysterectomy, bilateral salpingectomy, lysis of adhesions and repair of cystotomy that occurred intraoperatively by Dr. Tracy. She tolerated procedure well. Due to the bladder injury she was discharged with a Oliveros catheter and followed up with urology on 12/25. There she has a cystogram with negative extravasation of contrast and her catheter was removed. She was later seen in ED on 01/21 secondary to abdominal pain and dysuria. It was felt that she had a urinary tract infection and was discharged on a course of Macrobid. Her urine culture grew greater than 100,000 Pseudomonas aeruginosa. She was then called by pharmacy to transition antibiotic to ciprofloxacin. So far she has completed 5 days course and has felt unwell since taking ciprofloxacin. She comes in today due to still feeling unwell, suprapubic discomfort, low back discomfort, dysuria and urinary urgency/frequency. She reports significant nausea and joint pains with the cipro to the point she has been in bed the last 5 days. She denies any trauma/injury to her back since she was mostly laying in bed. Denies fever, chills, sweats, chest pain, sob, n/v. She is moving her bowels. She reports having on going urinary/bladder sx since hysterectomy which is expected per provider documentation. She does feel her sx have worsened since the UTI. She is concerned she may have another UTI. In ED she was hemodynamical ly stable. Her labwork was unremarkable. She underwent a Renal US which was negative. She was started on IV cefepime. Hx obtained from ED provider and pt. Admission Exam Per Admitting Provider Constitutional: WD/WN, vitals as above, NAD, sitting up in bed, pleasant, conversing easily Head: Normocephalic, Atraumatic Eyes: PERRL, conjunctivae normal, anicteric sclerae ENMT: external ear and nose normal, oropharynx normal Neck: trachea midline, no thyromegaly normal visual inspection Respiratory: normal respiratory effort, lungs clear to auscultation, no wheeze, rales, rhonchi. Normal insp/exp effort, no accessory muscle use Cardiovascular: RRR, no murmur, no edema Vessels: no JVD or carotid bruit Chest: normal inspection of chest Abdomen: normal bowel sounds, soft, mild TTP suprapubic region, no hepatosplenomegaly , no CVA tenderness Musculoskeletal: +TTP to b/l paravertebral muscles, no cyanosis or clubbing, extremities motor strength 5/5 Skin: no rashes, warm and dry normal turgor Neurologic: no face palsy, no dysarthria CN's II-XI intact bilaterally and moves all extremities Psychiatric: A+Ox3, euthymic affect Lymphatic: no cervical or axillary lymphadenopathy : deferred Discharge Exam Gen: WD/WN, NAD, A&O x3 HEENT: Normocephalic, atraumatic, conjunctivae moist, sclerae anicteric, mucous membranes moist. Lung: Clear to Auscultation bilaterally, no wheezes/rales/rhonchi Heart: Regular rate, regular rhythm, no murmurs, rubs, or gallops Abdomen: Soft, +TTP suprapubic region, ND +BS x 4 Extremities: No edema Skin: Warm, no rash, negative turgor. Updated Medication List Medication Instructions Recorded Confirmed Type bupropion HCl 300 mg 24 hr tablet, 300 mg PO QAM 08/07/24 01/29/25 History extended release levothyroxine 50 mcg tablet 50 mcg PO QAM 08/07/24 01/29/25 History calcium 600 mg (as 1 tab PO QAM 12/04/24 01/29/25 History carbonate)-vitamin D3 5 mcg (200 unit) tablet fluoxetine 20 mg capsule (Prozac) 20 mg PO HS 12/04/24 01/29/25 History cranberry 500 mg capsule 500 mg PO BID 01/29/25 01/29/25 History phenazopyridine 200 mg tablet 200 mg PO TID PRN pain with 01/31/25 Rx (Pyridium) urination #30 tabs vibegron 75 mg tablet (Gemtesa) 75 mg PO DAILY #30 tabs 01/31/25 Rx Hospital Stay Data Consultations 01/29/25 13:02 ED Decision to Admit Stat 01/31/25 07:17 Consult Infectious Diseases Routine Consult Urology Routine Diagnostic Imagining Performed Renal Ultrasound 01/29/25 11:10 RENAL ULTRASOUND HISTORY: uti, now diffuse abd pain, flank pain COMPARISON: CT of 01/21/2025 FINDINGS: Urinary bladder is grossly unremarkable. Right kidney measures 12 x 5 cm. Left kidney measures 12 x 5 cm. There is no hydronephrosis bilaterally. There is Doppler flow to both kidneys. Renal cortical thickness is normal. No re nal abscess seen. No renal calculi seen. IMPRESSION: No hydronephrosis. ACT 112: Negative or not required by law. Electronically signed by: Sandeep Villalobos M.D. 01/29/2025 12:11 PM Abdomen/Pelvis CT 01/30/25 00:00 CT abdomen pelvis wo/w con CLINICAL HISTORY: DYSURIA suprapubic pain; history of a prior hysterectomy COMPARISON STUDY: 01/21/2025 where the patient had the same presenting symptomatology. TECHNIQUE: Helical axial CT of the abdomen and pelvis was performed before and after 93 cc of Optiray 320 intravenously. Sagittal and coronal reconstructions were done. Total exam DLP 2522.06mGy*cm FINDINGS: The noncontrast examination demonstrates no acute findings. Following intravenous contrast enhancement, there is no significant solid organ lesion identified. Diffuse hepatic steatosis is redemonstrated. The gallbladder is absent. The bile ducts are not dilated. There is no hydronephrosis. There is no urinary tract calcification. In the pancreas, adrenal glands, and spleen are unremarkable. There is no aortic aneurysm or periaortic adenopathy. There is no bowel obstruction or free air. There is no ascites. There is no colitis or diverticulitis. In the pelvis, there is a small fat-containing umbilical hernia that is unchanged. There is inflammatory-type stranding in the anterior aspect of the bladder wall extending upward along the line of a suspected urachal remnant. The uterus is absent today. There is no fluid in the cul-de-sac. The appendix is normal. 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 ACT 112: Negative or not required by law. Electronically signed by: Jeannie Green M.D. 01/30/2025 3:46 PM Pending Results Patient Have Any Pending Studies at Discharge: No Discharge Instructions Given to Patient (Per Discharging Provider) MEDICATION CHANGES: New Medications: 1. Gemtesa 75mg daily to help with urinary urgency 2. Pyridium 200mg every 8 hrs as needed for pain when urinating. This will discolor your urine orange. 3. Ibuprofen 600mg every 6-8hrs as needed for lower abdominal pain. SUMMARY OF TEST RESULTS: You were admitted to the hospital due to concern for untreated urinary tract infection. Your urine culture was negative for infection. Your IV antibiotics were stopped. You had a repeat CT scan of abd/pelvis that showed a possible urachal cyst. Your urologist will evaluate this as an outpatient. PENDING TEST RESULTS: None RECOMMENDATIONS FOR FOLLOW-UP: Please follow up with urology as scheduled for a cystoscopy. If your symptoms persist or worsen, please call Urology for a sooner appointment. You may utilize Ibuprofen or Tylenol for pain relief. I recommend utilizing a heating pad to heavy forger helper in any discomfort. OTHER INSTRUCTIONS: Seek medical attention if you have: * temperature above 101 * chest pain or trouble breathing * abdominal pain, nausea, vomiting * diarrhea, dark stools or bloody stools * any unanswered questions or concerns Call 911 if symptoms are severe. Please take good care of yourself. It has been a pleasure taking care of you. Please take care of yourself. If you have any questions regarding your recent hospitalization please contact [facility] and request [facility] Smith[facility] @ [phone]. Total Time Total Time Spent Total Time Spent (In Minutes): 45 minutes Supervising Physician Co-Signing Physician Notes Patient seen and examined at bedside. Extensive discussion with patient, and friend with permission of patient, in regards to next steps. Discussed that this is likely a postoperative complication and that it needs a foot close follow-up with urology and gynecology. On exam, noted to have suprapubic tenderness and umbilical tenderness as well. Will need close follow-up with gynecology to discuss postoperative complications and urology in the setting of bladder repair. I have seen and discussed the case with the collaborating advanced practitioner. I agree with the above H&P. I have reviewed and confirmed the patients medical history, the findings on physical examination, and the patients diagnosis and treatment plan with Makenna Lawrence PA-C and agree with the information documented. I spent a total of 20 minutes coordinating, documenting, and providing care for this patient excluding time spent in the performance of separately billed services. All of the aforementioned completed outside of collaborating with the assigned advanced practitioner for a full treatment plan. I have reviewed the advanced practitioner's documentation, and I agree with, and take responsibility for the plan of care
== END 2025-01-31 14:30 | disposition home or self-care (01) | DRG 696 ==
LOC: ED 10:04 → 3W 10:04 → SUATTDRO 13:03 → 3W 16:59

== ENCOUNTER 2025-09-13 07:00 | Observation (INO) ==
--- NOTE | 2025-08-19 10:23 | PAT Medication Instructions ---
Medication Instructions Date of Service August 19, 2025 Home Medications Medication Instructions Recorded fluconazole 150 mg tablet 150 mg PO Q72H #2 tabs 04/24/25 estradiol 0.01% (0.1 mg/gram) See Rx Instructions .Route 08/06/25 vaginal cream .COMPLEX #42.5 grams estradiol 0.025 mg/24 hr 1 patch transdermal .twice weekly 08/06/25 semiweekly transdermal patch #8 ea Medication List: bupropion HCl 300 mg 24 hr tablet, extended release 300 mg PO QAM levothyroxine 50 mcg tablet 50 mcg PO QAM calcium 600 mg (as carbonate)-vitamin D3 5 mcg (200 unit) tablet 1 tab PO QAM fluoxetine 20 mg capsule (Prozac) 20 mg PO HS cranberry 500 mg capsule 500 mg PO BID fluconazole 150 mg tablet 150 mg PO Q72H aspirin 81 mg tablet 81 mg PO DAILY ibuprofen 800 mg tablet 800 mg PO BID PRN Pain estradiol 0.01% (0.1 mg/gram) vaginal cream See Rx Instructions .Route .COMPLEX estradiol 0.025 mg/24 hr semiweekly transdermal patch 1 patch transdermal .twice weekly albuterol sulfate 90 mcg/actuation aerosol inhaler 1 inh inhalation QID PRN Wheezing tirzepatide (weight loss) 2.5 mg/0.5 mL subcutaneous pen injector (Zepbound) 2.5 mg subcut WK vitamin C 90 mg-zinc gluconate 15 mg-herbal complex no. 325 lozenges 1 radha PO D AILY MEDICATION INSTRUCTIONS: Continue as directed fluconazole 150 mg tablet 150 mg PO Q72H estradiol 0.01% (0.1 mg/gram) vaginal cream See Rx Instructions .Route .COMPLEX (do not apply after bathing prior to surgery) estradiol 0.025 mg/24 hr semiweekly transdermal patch 1 patch transdermal .twice weekly (do not apply after bathing prior to surgery) albuterol sulfate 90 mcg/actuation aerosol inhaler 1 inh inhalation QID PRN Wheezing (use if needed; bring to hospital) ASK your surgeon for instructions ibuprofen 800 mg tablet 800 mg PO BID PRN Pain ASK your prescriber and surgeon aspirin 81 mg tablet 81 mg PO DAILY STOP taking 2 weeks before surgery cranberry 500 mg capsule 500 mg PO BID DO NOT take the morning of surgery calcium 600 mg (as carbonate)-vitamin D3 5 mcg (200 unit) tablet 1 tab PO QAM vitamin C 90 mg-zinc gluconate 15 mg-herbal complex no. 325 lozenges 1 radha PO DAILY Take morning of surgery With a small sip of water, OTHERWISE NOTHING TO EAT OR DRINK AFTER MIDNIGHT: bupropion HCl 300 mg 24 hr tablet, extended release 300 mg PO QAM levothyroxine 50 mcg tablet 50 mcg PO QAM Other Notes Per nursing phone call, Last dose to be 09/04/25 of: tirzepatide (weight loss) 2.5 mg/0.5 mL subcutaneous pen injector (Zepbound) 2.5 mg subcut WK If you have any questions please call us at [phone] or [phone] or [phone] or [phone]
--- NOTE | 2025-08-27 10:18 | Anesthesiology Consultation ---
Date of Service August 27, 2025 Assessment & Plan (1) Encounter for pre-operative examination: - Infectious disease screening: Per assessment on 08/27/25- No known recent infectious disease contacts or current infectious disease symptoms. - Outpatient joint assessment: Pt currently scheduled for inpatient pathway. If surgeon requests review for outpatient joint pathway, patient is an acceptable candidate for outpatient joint program from anesthesia standpoint pending surgeon's office assessment that patient is motivated, has good support and completes [facility] preop requirements. - GLP-1 medication instructions: Taking for weight loss. Patient informed by [facility] to stop 7 days prior to surgery- voiced understanding. DOS 09/13. Advised last dose to be 09/04. - S/P Robotic Assisted Laparoscopic Hysterectomy, Bilateral Salpingectomy, EDUARDO, and Repair of Cystotomy (12/17/24): Grade 1 view, MAC#3, ETT 7.0, "atraumatic x3" (see records), [facility] - Chlorhexidine allergy: Hives reaction with prior use. No chlorhexidine wipes provided at [facility] appt. - Hx PONV: Improvement with scope patch use in the past (though patient notes she did still have PONV, but to a lesser degree). Will order scope patch for DOS . Chart Review Chart Review: Acceptable Risk for Surgery and Patient seen in Pre Admission Testing Teaching & Discussion Pre-Anesthesia Teaching/Discussion Notes: Instructed NPO after midnight before surgery,except medications with 15 cc of water. Medication instructions provided according to the [facility] guidelines. History Surgery Operation Date: 09/13/25 11:00 Proposed Procedures p Right Total Hip Arthroplasty Anterior - Ryan Spears DO Height/Weight Height: 5 ft 3 in Weight: 79.2 kg Allergies Allergy/AdvReac Type Severity Reaction Status Date / Time chlorhexidine Allergy Severe Hives Verified 08/16/25 13:12 surgical glue Allergy Mild Unknown Uncoded 08/16/25 13:12 Medications Home Medications Medication Instructions Recorded Confirmed Last Taken bupropion HCl 300 mg 24 hr tablet, 300 mg PO QAM 08/07/24 08/16/25 12/16/24 09:00 extended release levothyroxine 50 mcg tablet 50 mcg PO QAM 08/07/24 08/16/25 12/17/24 06:00 calcium 600 mg (as 1 tab PO QAM 12/04/24 08/16/2525 carbonate)-vitamin D3 5 mcg (200 unit) tablet fluoxetine 20 mg capsule (Prozac) 20 mg PO HS 12/04/24 08/16/25 12/16/24 18:00 cranberry 500 mg capsule 500 mg PO BID 01/29/25 08/16/25 Unknown fluconazole 150 mg tablet 150 mg PO Q72H #2 tabs 04/24/25 08/16/25 Unknown aspirin 81 mg tablet 81 mg PO DAILY 05/02/25 08/16/25 Unknown ibuprofen 800 mg tablet 800 mg PO BID PRN Pain 05/02/25 08/16/25 Unknown estradiol 0.01% (0.1 mg/gram) See Rx Instructions .Route 08/06/25 08/16/25 Unknown vaginal cream .COMPLEX #42.5 grams estradiol 0.025 mg/24 hr 1 patch transdermal .twice weekly 08/06/25 08/16/25 Unknown semiweekly transdermal patch #8 ea albuterol sulfate 90 mcg/actuation 1 inh inhalation QID PRN Wheezing 08/16/25 08/16/25 Unknown aerosol inhaler tirzepatide (weight loss) 2.5 2.5 mg subcut WK 08/16/25 08/16/25 Unknown mg/0.5 mL subcutaneous pen injector (Zepbound) vitamin C 90 mg-zinc gluconate 15 1 radha PO DAILY 08/16/25 08/16/25 Unknown mg-herbal complex no. 325 lozenges Past Medical History Medical History Anxiety Asthma Cervical spinal stenosis Chronic sinusitis Heartburn Diet related, no current issues Hx of motion sickness Hypothyroidism Obesity Per PAT RN: Weekly Zepbound for weight loss Right inguinal hernia Present Scoliosis Per records Temporomandibular joint dysfunction syndrome Clicks, no locking Exercise / Class Metabolic Activity II 4-5 Yardwork/Stairs/Walk up hill (one FS: No CP, no SOB) Past Family History Family History Other Adopted person Past Surgical History Surgical History H/O bilateral breast reduction surgery H/O bladder repair surgery H/O cervical spine surgery C6-7 cervical decompression H/O: hysterectomy (11/2024) Robotic Assisted Laparoscopic Hysterectomy, Bilateral Salpingectomy, EDUARDO, and Repair of Cystotomy: Grade 1 view, MAC#3, ETT 7.0, "atraumatic x3", [facility] (12/17/24) History of anesthesia reaction PONV History of bilateral tubal ligation History of carpal tunnel release (10/2020) bilateral History of section x3- 2003, 2004, 2007 History of cholecystectomy (2007) History of colonoscopy History of esophagogastroduodenoscopy (EGD) History of hip surgery Right, 10/15 PONV (postoperative nausea and vomiting) Has used scope patch in the past without issues S/P endometrial ablation S/P hip arthroscopy Right Past Anesthesia History No Hx of Anesthesia Complications and No Family Hx of Anesthesia Complications (Adopted- limited hx) History of PONV History of PONV and Hx of Motion Sickness Social History Smoking Status: Never smoker Do You Dip or Chew Tobacco: No Hx Alcohol Use: Yes Alcohol type: hard liquor alcohol intake frequency: a few times a week Hx Substance Use: No substance use type: does not use Review of Systems Occasional palpitations. Patient denies chest pain, shortness of breath, dyspnea on exertion, fever, chills, cough, wheezing. Physical Exam Vital Signs BP 144/90 P 73 TEMP 98.0 SP02 98%RA RESP 16 Physical Full cervical extension range of motion. Full TMJ range of motion. TMD 3 finger breaths Mallampati Score II Dentition: intact, + caps Lungs: clear throughout to auscultation Cardiac: regular rate and rhythm, no murmurs noted Spine: normal Extremities: no LE edema Lab Results Anesthesia Preop Results Results Anesthesia Widget: WBC 4.19 K/ul (4.8-10.8) L 08/27/25 Hgb 14.9 g/dl (12.0-16.0) 08/27/25 Hct 41.4 % (37.0-47.0) 08/27/25 Plt 244 K/uL (130-400) 08/27/25 Na 137 mmol/L (136-145) 08/27/25 K 4.0 mmol/L (3.5-5.1) 08/27/25 Cl 103 mmol/L (98-107) 08/27/25 CO2 26 mmol/L (21-32) 08/27/25 BUN 14 mg/dl (6-23) 08/27/25 Creat 0.84 mg/dl (0.6-1.2) 08/27/25 Glucose Level 107 mg/dl (70-99(Fasting)) H 08/27/25 PT 10.3 Seconds (9.0-12.0) 08/27/25 PTT 26 Seconds (21-31) 08/27/25 INR 1.0 (0.9-1.1) 08/27/25 Blood Type A Positive 08/27/25 Antibody Screen NEGATIVE 08/27/25 Testing Laboratory Results Preop testing forwarded to PCP for continuity of care* Electrocardiogram Date: 03/25/25 NSR at 68bpm. Low voltage QRS, consider pulmonary disease, pericardial effusion or normal variant Chest X-Ray Date: 08/27/25 FINDINGS: Heart size and pulmonary vasculature are normal. No consolidation or pleural effusion. Lungs are mildly hyperexpanded, stable. IMPRESSION: No acute findings. Echocardiogram Date: 02/03/22 LVEF 69%. LV wall motion is normal. No significant valvular disease. No evidence of intracardiac shunt with injection of agitated saline contrast.
[~2025-09-13 07:00] MED LIST: ROPIVACAINE 0.5% 5 MG/ML 30 ML VIAL ONE
[2025-09-13] MEDS ORDERED: PROPOFOL IV EMULSION 10 MG/ML 20 ML VIAL IV ONE (07:29)
[2025-09-13] MEDS ORDERED: ONDANSETRON INJ 2 MG/ML 2 ML VIAL ONE (07:29)
[2025-09-13] MEDS ORDERED: MIDAZOLAM HCL 1 MG/ML 2ML VIAL ONE (07:30)
[2025-09-13] MEDS: GABAPENTIN 300 MG CAP PO SCH (07:38)
[2025-09-13] MEDS: LR 500ML BOLUS, THEN 15ML/HR IV SCH (07:38)
[2025-09-13] MEDS: ACETAMINOPHEN 500 MG TAB PO SCH ×2 (07:38→15:50)
[2025-09-13] MEDS: LR 60ML/HR IV SCH (07:38)
[2025-09-13] MEDS: dexAMETHasone**PF** 10 MG/ML VIAL IV SCH (07:39)
[2025-09-13] MEDS: FAMOTIDINE 20 MG TAB PO SCH (07:39)
--- NOTE | 2025-09-13 08:08 | History & Physical Bridge Note ---
Date of Service September 13, 2025 History & Physical Bridge Note I have examined the patient, reviewed the History & Physical and in the interval since the performance of the History & Physical I have noted the following changes of clinical significance: no changes noted
[2025-09-13] MEDS ORDERED: ATROPINE SULFATE 0.1 MG/ML 10ML SYR IV PRN (08:22)
[2025-09-13] MEDS ORDERED: KETOROLAC 30 MG/ML VIAL IV PRN (08:22)
[2025-09-13] MEDS ORDERED: PROMETHAZINE HCL 6.25 MG in SODIUM CHLORIDE 0.9% 50 ML IV PRN (08:22)
[2025-09-13] MEDS: TRANEXAMIC ACID 1,000 MG **IV Pre-op IV SCH (08:47)
[2025-09-13] MEDS: ORTHO JOINT ANESTHETIC ONE (09:25)
[2025-09-13] MEDS: ROPIV 0.5% 246mg, Ketorolac 30mg, EPINEPHrine 0.5mg in NSS INFIL SCH (09:45)
--- NOTE | 2025-09-13 09:59 | Operative Report ---
PG Post Operative Report Pre & Post Diagnosis Operation Date: 09/13/25 09:00 Pre-Op Diagnosis: osteoarthritis of right hip Post-Op Diagnosis: osteoarthritis of right hip I identified the patient and participated in the time-out.: Yes Procedure Operation Date: 09/13/25 09:00 Actual Procedures p Right Total Hip Arthroplasty Anterior(Right) - Ryan Spears DO Surgeon Ryan Spears DO Brine Supervisor Brian Simon PA-C Estimated Blood Loss 250 Findings Consistent with Post-Op Diagnosis Specimens Right femoral head Description of Procedure Implants used I used a Zimmer[employer]omet total hip arthroplasty system with a size 0 standard offset Z1 stem, a 48 mm G7 cup, an E1 polyethylene liner, a 32 mm ceramic head with a 0 neck. Riki arrived at the hospital for the above procedure. She was seen in the preoperative holding area and the operative extremity was identified and signed. She was given a spinal anesthetic, a preoperative antibiotic, and TXA. She was then taken back to the operating room and laid on the table in the supine position. She was given basic sedation. The operative leg was secured to a Puristst leg positioner. The hip was then prepped and draped in sterile fashion. A timeout was done and the patient and the operative extremity was properly identified. An anterior approach was used. Dissection was taken down through the fascia and the tensor muscle belly was retracted laterally and the rectus was retracted medially. The circumflex vessels were identified and ligated. The capsule was then incised and tagged for later repair. The femoral neck was then cut and the femoral head was removed. The acetabulum was exposed. Time was spent doing a complete circumferential labral release. Sequential reaming of the acetabulum up to a size 47 reamer was done. Final reamings were done under fluoroscopy to ensure appropriate version. A Biomet 48 mm G7 cup was then impacted into place. The E1 polyethylene liner was then snapped into place. Surrounding soft tissues were then injected with 100 cc of an orthopedic pain control cocktail. The proximal femur was then exposed. Sequential broaching up to a size 0 broach was done. Off that broach a size 32 head with a 0 neck was trialed. The hip was reduced and fluoroscopic images showed anatomic alignment of the implants in acceptable length. The broach was removed. The final size 0 standard offset Z1 stem was then impacted into place. A ceramic 32 mm head with a 0 neck was then impacted onto the stem and the hip was reduced. Final fluoroscopic images showed anatomic alignment of the hip. The capsule was then closed with #1 Vicryl suture. A dilute betadyne lavage was then done for 3 minutes. The joint was then irrigated with normal saline solution. The fascia was closed with #1 PDS suture. Skin was closed with 2-0 Vicryl, Quincy Zipline, and a Silverlon dressing. She was then transferred to a hospital bed and taken to the post anesthesia care unit in stable condition. She tolerated the procedure well. Brian Simon PA-C, was present for the entire procedure. He was critical for patient positioning, prepping, draping, retraction exposure, wound closure and application of sterile dressing. I attest to the content of the Intraoperative Record and any orders documented therein. Any exceptions are noted below.
--- NOTE | 2025-09-13 10:45 | Fluoroscopy Report ---
FL hip RT 1V CLINICAL HISTORY: RT TOTAL HIP COMPARISON STUDY: None FLUOROSCOPY TIME: 14 seconds FLUOROSCOPY IMAGES: 1 EXPOSURE DOSE: 2 mGy FINDINGS: Fluoroscopy was provided for right hip prosthesis. IMPRESSION: Intraoperative fluoroscopy. ACT 112: Negative or not required by law. Electronically signed by: Sandeep Villalobos M.D. 09/13/2025 10:44 AM
--- NOTE | 2025-09-13 11:08 | XRay Report ---
XR hip 1V RT w pelvis CLINICAL HISTORY: IN PACU - Post Surgical COMPARISON: None FINDINGS: Right hip prosthesis shows no hardware complication. There is expected soft tissue gas. IMPRESSION: Unremarkable postoperative exam. ACT 112: Negative or not required by law. Electronically signed by: Sandeep Villalobos M.D. 09/13/2025 11:06 AM
[2025-09-13] MEDS ORDERED: NALOXONE HCL 0.4 MG/1 ML VIAL/CARP IV PRN (11:40)
[2025-09-13] MEDS ORDERED: MAGNESIUM HYDROXIDE SUSP 30 ML UDC PO PRN (11:40)
[2025-09-13] MEDS ORDERED: HYDROmorphone INJ 0.5 MG/0.5 ML SYR IV PRN (11:40)
[2025-09-13] MEDS: HYDROmorphone INJ 1 MG/ML SYRINGE IV PRN (12:17)
--- NOTE | 2025-09-13 12:43 | Anesthesiology Progress Note ---
Date of Service September 13, 2025 Anesthesia Post Procedure Vital Signs Vital Signs: Temp Pulse Pulse Resp BP Pulse Ox O2 Del Method 09/13/25 11:50 98 H 15 141/84 H 97 Room Air 09/13/25 11:35 91 H 18 111/70 98 Room Air 09/13/25 11:20 76 18 112/81 99 Room Air 09/13/25 11:05 81 17 111/70 98 Room Air 09/13/25 10:50 36.8 C 78 17 113/81 97 Room Air 09/13/25 10:40 85 17 122/78 98 Room Air 09/13/25 10:30 81 17 107/78 100 Oxymask 09/13/25 10:23 37.0 C 88 17 116/72 100 Oxymask 09/13/25 07:14 36.5 C 74 20 130/89 97 Room Air O2 Flow Rate 09/13/25 11:50 09/13/25 11:35 09/13/25 11:20 09/13/25 11:05 09/13/25 10:50 09/13/25 10:40 09/13/25 10:30 5 09/13/25 10:23 5 09/13/25 07:14 Pain Intensity Right Hip: Pain Intensity: 2 Transfer of Care Handoff Completed per policy Notes Mental Status: alert / awake / arousable Patient Amnestic to Procedure: Yes Nausea / Vomiting: adequately controlled Pain: adequately controlled Airway Patency, RR, SpO2: stable & adequate BP & HR: stable & adequate Hydration State: stable & adequate Neuraxial Anesthesia: was administered and sensory block is resolving Anesthetic Complications: no major complications apparent
[2025-09-13] MEDS: HYDROmorphone INJ 1 MG/ML SYRINGE ONE (13:30)
[2025-09-13] MEDS: SODIUM CHLORIDE 0.9% 1,000 ML IV SCH (13:54)
[2025-09-13] MEDS: ONDANSETRON INJ 2 MG/ML 2 ML VIAL IV PRN (13:57)
[2025-09-13] MEDS: KETOROLAC TROMETHAMINE 15 MG/ML VIAL IV SCH (14:17)
[2025-09-13] MEDS: METOCLOPRAMIDE HCL INJ 5 MG/ML 2 ML VIAL IV PRN (15:59)
[2025-09-13] MEDS: DOCUSATE SODIUM 100 MG CAP PO SCH (21:12)
[2025-09-13] MEDS: SENNA 8.6 MG TAB PO SCH (21:12)
[2025-09-13] MEDS: ASPIRIN 81 MG ECTAB PO SCH (21:13)
[2025-09-14] MEDS: LEVOTHYROXINE SODIUM 50 MCG TABLET PO SCH (05:38)
[2025-09-14 05:41] VITALS: O2SAT 97
[2025-09-14 07:49] VITALS: BP 126/78; PULSE 75; RESP 16; TEMP 97.9
[2025-09-14] MEDS: MULTIVITAMIN TAB PO SCH (08:03)
--- NOTE | 2025-09-14 08:41 | Orthopedic Progress Note ---
Date of Service September 14, 2025 Assessment & Plan (1) Status post right hip replacement: Overall she is doing fairly well. She is not having much pain in the right hip. She will be seen by physical therapy today for ambulation and range of motion exercises. She is on aspirin for DVT prophylaxis. She can be discharged to home later today. She will follow-up orthopedics in 2 weeks. [place] Lyn was seen and examined at bedside this morning. Overall she is doing fairly well. She is not having much pain in the right hip. She has been up and ambulating to the bathroom. She has no complaints.. Review of Systems All systems reviewed & are unremarkable except as noted in HPI & below. Physical Exam On physical exam of the right hip, the dressing is clean and dry. Her leg is out in full extension. She has active dorsiflexion and plantarflexion of her right ankle.. Results & Data Results & Data Laboratory Results . Diagnostic Findings Postoperative x-rays of the right hip show the prosthesis to be in anatomic alignment without any evidence of fracture, dislocation, or loosening.. . PG Care Time/CCT Total # of Minutes Spent Total Time Spent with Patient: Total time spent is greater than 50% in coordination of care (as documented) at patient's floor/unit and/or counseling patient: Coding Level of Care Code 22187 Post Operative Follow-Up Diagnoses Status post right hip replacement Z96.641
[2025-09-14] MEDS: ONDANSETRON INJ 2 MG/ML 2 ML VIAL IV PRN (10:52)
== END 2025-09-14 11:37 | disposition home or self-care (01) ==
LOC: ASU 07:00 → PACUINP 07:00 → 3N 13:20